=== PATIENT | female | born 1960 | race Caucasian/White ===

== ENCOUNTER 2023-03-19 03:28 | Observation (INO) | payer OTHER ==
[2023-03-19] MEDS ORDERED: SODIUM CHLORIDE 0.9% 1,000 ML IV STA ×3 (03:45→07:27)
[2023-03-19 05:10] LABS: ALT 30 U/L (4-34); AST 48 U/L (14-36); African American GFR (CKD) >90 (>60 ml/min/1.73 sqM); Albumin 3.2 g/dL (3.5-5.0); Alkaline Phosphatase 114 U/L (38-126); Amylase 32 U/L (30-110); Anion Gap 7 mmol/L; Blood Urea Nitrogen 7 mg/dL (7-17); Calcium 8.3 mg/dL (8.4-10.2); Carbon Dioxide 24 mmol/L (22-30); Chloride 103 mmol/L (98-107); Glucose 123 mg/dL (74-99); Lipase 25 U/L (23-300); Magnesium 2.2 mg/dL (1.6-2.3); Non-African American GFR(CKD) >90 (>60 ml/min/1.73 sqM); Phosphorus 2.7 mg/dL (2.5-4.5); Sodium 134 mmol/L (137-145); Total Bilirubin 0.9 mg/dL (0.2-1.3); Total Protein 6.3 g/dL (6.3-8.2)
[2023-03-19 05:13] LABS: Potassium 3.7 mmol/L (3.5-5.1)
[2023-03-19 06:18] LABS: Basophils # (A) 0.1 k/uL (0-0.2); Basophils % (A) 0 %; Eosinophils # (A) 0.4 k/uL (0-0.7); Eosinophils % (A) 3 %; HCT 37.3 % (34.0-46.0); Lymphocytes # (A) 2.3 k/uL (1.0-4.8); Lymphocytes % (A) 17 %; MCH 36.1 pg (25.0-35.0); MCHC 34.7 g/dL (31.0-37.0); MCV 103.8 fL (80.0-100.0); Macrocytosis Slight; Mean Platelet Volume 9.2; Monocytes # (A) 0.7 k/uL (0-1.0); Monocytes % (A) 5 %; Neutrophils # (A) 10.1 k/uL (1.3-7.7); Neutrophils % (A) 73 %; Platelet Count 183 k/uL (150-450); RDW 13.2 % (11.5-15.5); WBC 13.7 k/uL (3.8-10.6)
--- NOTE | 2023-03-19 06:26 | ED ---
Abdominal Pain HPI - General Chief Complaint: Abdominal Pain Stated Complaint: Bowel Obstruction Time Seen by Provider: 03/19/23 03:40 Source: patient, EMS, RN notes reviewed, old records reviewed Mode of arrival: EMS - History of Present Illness Initial Comments: This is a 62-year-old female to the ER today. Patient states she's having significant abdominal pain generalized and diffuse abdominal pain with decreased bowel movements. Patient states she can't urinate and can have a bowel movement. No prior surgical history no history of similar complaint. She states she hasn't had a bowel movement in over 2 weeks MD Complaint: abdominal pain -: week(s) Location: diffuse Radiation: none Severity: moderate Severity scale (1-10): 4 Quality: fullness Consistency: constant Improves With: nothing, bowel movement Worsens With: nothing Associated Symptoms: nausea, constipation Treatments Prior to Arrival: other (0) - Related Data Home Medications Medication Instructions Recorded Confirmed Cyclobenzaprine [Flexeril] 10 mg PO TID PRN 03/19/23 03/19/23 Naproxen [Naprosyn] 500 mg PO BID PRN 03/19/23 03/19/23 Omeprazole [PriLOSEC] 40 mg PO DAILY 03/19/23 03/19/23 Rosuvastatin Calcium 20 mg PO HS 03/19/23 03/19/23 oxyCODONE-APAP 5-325MG [Percocet 1 tab PO TID PRN 03/19/23 03/19/23 5-325 mg] traZODone HCL 150 mg PO HS 03/19/23 03/19/23 Previous Rx's Medication Instructions Recorded Lactulose [Cephulac] 30 gm PO BID PRN #360 ml 03/21/23 polyethylene glycoL 3350 [Miralax] 17 gm PO DAILY 30 Days #527 gm 03/21/23 Allergies Allergy/AdvReac Type Severity Reaction Status Date / Time No Known Allergies Allergy Verified 03/19/23 09:15 Review of Systems ROS Statement: Those systems with pertinent positive or pertinent negative responses have been documented in the HPI. ROS Other: All systems not noted in ROS Statement are negative. Past Medical History Past Medical History: GERD/Reflux, Hypertension History of Any Multi-Drug Resistant Organisms: None Reported Past Surgical History: Section, Cholecystectomy Past Psychological History: Anxiety, Bipolar, Depression, Panic Disorder Past Alcohol Use History: Abuse, Daily, Heavy Past Drug Use History: None Reported - Past Family History Father Family Medical History: Cancer Additional Family Medical History / Comment(s): Father at age 70 from colon cancer. Mother Family Medical History: No Reported History Additional Family Medical History / Comment(s): Mother at age 48 from broken heart and alcoholism. Sister(s) Additional Family Medical History / Comment(s): Anh Chin has 2 sisters and both have problems with alcohol abuse. Patient does not have any brothers. Son(s) Additional Family Medical History / Comment(s): Patient has 2 sons one is 23 years old and has history of depression and 30-year-old son with history of alcohol abuse and marijuana use. General Exam General appearance: alert, in no apparent distress Head exam: Present: atraumatic, normocephalic, normal inspection Eye exam: Present: normal appearance, PERRL, EOMI. Absent: scleral icterus, conjunctival injection, periorbital swelling ENT exam: Present: normal exam, mucous membranes moist Neck exam: Present: normal inspection. Absent: tenderness, meningismus, lymphadenopathy Respiratory exam: Present: normal lung sounds bilaterally. Absent: respiratory distress, wheezes, rales, rhonchi, stridor Cardiovascular Exam: Present: regular rate, normal rhythm, normal heart sounds. Absent: systolic murmur, diastolic murmur, rubs, gallop, clicks GI/Abdominal exam: Present: soft, tenderness, normal bowel sounds. Absent: distended, guarding, rebound, rigid Extremities exam: Present: normal inspection, full ROM, normal capillary refill. Absent: tenderness, pedal edema, joint swelling, calf tenderness Back exam: Present: normal inspection Neurological exam: Present: alert, oriented X3, CN II-XII intact Psychiatric exam: Present: normal affect, normal mood Skin exam: Present: warm, dry, intact, normal color. Absent: rash Course Vital Signs 03/19/23 03/19/23 03/19/23 03:32 07:00 11:11 Temperature 98.4 F 98 F 98.9 F Pulse Rate 98 90 94 Respiratory 18 16 18 Rate Blood Pressure 131/87 148/90 133/79 O2 Sat by Pulse 98 99 96 Oximetry 03/19/23 03/19/23 03/19/23 12:07 15:00 18:21 Temperature 98.2 F Pulse Rate 85 88 80 Respiratory 18 18 18 Rate Blood Pressure 129/76 117/77 126/64 O2 Sat by Pulse 96 97 99 Oximetry - Reevaluation(s) Reevaluation #1: 03/19/23 06:24 Medical records reviewed Reevaluation #2: 03/19/23 07:29 Patient has no improvement in symptoms here in the ER Reevaluation #3: 03/19/23 07:29 Patient informed of results and questions answered Reevaluation #4: 03/19/23 06:25 Was pt. sent in by a medical professional or institution (, DOM, OPHTHALMOLOGY TECHNICIAN, urgent care, hospital, or intermediate...) When possible be specific @ -no Did you speak to anyone other than the patient for history (EMS, parent, family, police, friend...)? What history was obtained from this source @ -no Did you review nursing and triage notes (agree or disagree)? Why? @ -agree Are old charts reviewed (outside hosp., previous admission, EMS record, old EKG, old radiological studies, urgent care reports/EKG's, intermediate records)? Report findings @ -yes Differential Diagnosis (chest pain, altered mental status, abdominal pain women, abdominal pain men, vaginal bleeding, weakness, fever, dyspnea, syncope, headache, dizziness, GI bleed, back pain, seizure, CVA, palpatations, mental health, musculoskeletal)? @ -prior EKG interpreted by me (3pts min.). @ -no X-rays interpreted by me (1pt min.). @ -no CT interpreted by me (1pt min.). @ -yes U/S interpreted by me (1pt. min.). @ -no What testing was considered but not performed or refused? (CT, X-rays, U/S, labs)? Why? @ -none What meds were considered but not given or refused? Why? @ -none Did you discuss the management of the patient with other professionals (professionals i.e. DOM Peres, OPHTHALMOLOGY TECHNICIAN, lab, RT, psych nurse, director social, airset molder, teacher, chief analytics officer, case checker)? Give summary @ -no Was smoking cessation discussed for >3mins.? @ -no Was critical care preformed (if so, how long)? @ -no Were there social determinants of health that impacted care today? How? (Homelessness, low income, unemployed, alcoholism, drug addiction, transportation, low edu. Level, literacy, decrease access to med. care, detention, rehab)? @ -none Was there de-escalation of care discussed even if they declined (Discuss DNR or withdrawal of care, Hospice)? DNR status @ -no What co-morbidities impacted this encounter? (DM, HTN, Smoking, COPD, CAD, Cancer, CVA, ARF, Chemo, Hep., AIDS, mental health diagnosis, sleep apnea, morbid obesity)? @ -none Was patient admitted / discharged? Hospital course, mention meds given and route, prescriptions, significant lab abnormalities, going to OR and other pertinent info. @ - 62 female to the emergency department for evaluation of significant abdominal pain with constipation does have significant amount of rectal stool, will be given antibiotics and admitted for bowel regimen patient states she re cently started on pain control and multiple medications that she takes for pain which have left her with constipation as a side effect Admitted Undiagnosed new problem with uncertain prognosis? @ -no Drug Therapy requiring intensive monitoring for toxicity (Heparin, Nitro, Insulin, Cardizem)? @ -no Were any procedures done? @ -no Diagnosis/symptom? @ -Colonic stool no fecal rectal impaction Acute, or Chronic, or Acute on Chronic? @ -Acute Uncomplicated (without systemic symptoms) or Complicated (systemic symptoms)? @ -Complicated Side effects of treatment? @ -no Exacerbation, Progression, or Severe Exacerbation? @ -exacerbation Poses a threat to life or bodily function? How? (Chest pain, [place], [place], pneumonia, PE, COPD, DKA, ARF, appy, cholecystitis, CVA, Diverticulitis, Homicidal, Rodriguez icidal, threat to staff... and all critical care pts) @ -no Reevaluation #5: 03/19/23 06:25 Differential Abdominal Pain Men: Appendicitis, cholecystitis, diverticulosis, ischemic bowel, pancreatitis, hepatitis, UTI, gastroenteritis, AAA, incarcerated hernia, bowel obstruction, constipation, inflammatory bowel, hepatitis, peptic ulcer disease, splenic infarction, perforated viscus, testicular torsion, this is not meant to be an all-inclusive list - Consultations Consultation #1: Spoke with ELISABETH to agrees to admit the patient Medical Decision Making - Medical Decision Making 62 female to the emergency department for evaluation of significant abdominal pain with constipation does have significant amount of rectal stool, will be given antibiotics and admitted for bowel regimen patient states she recently started on pain control and multiple medications that she takes for pain which have left her with constipation as a side effect - Lab Data Result diagrams: 03/20/23 05:27 03/21/23 05:27 Lab Results 03/19/23 03/19/23 Range/Units 04:27 06:00 WBC 13.7 H (3.8-10.6) k/uL RBC 3.60 L (3.80-5.40) m/uL Hgb 13.0 (11.4-16.0) gm/dL Hct 37.3 (34.0-46.0) % MCV 103.8 H (80.0-100.0) fL MCH 36.1 H (25.0-35.0) pg MCHC 34.7 (31.0-37.0) g/dL RDW 13.2 (11.5-15.5) % Plt Count 183 (150-450) k/uL MPV 9.2 Neutrophils % 73 % Lymphocytes % 17 % Monocytes % 5 % Eosinophils % 3 % Basophils % 0 % Neutrophils # 10.1 H (1.3-7.7) k/uL Lymphocytes # 2.3 (1.0-4.8) k/uL Monocytes # 0.7 (0-1.0) k/uL Eosinophils # 0.4 (0-0.7) k/uL Basophils # 0.1 (0-0.2) k/uL Macrocytosis Slight Sodium 134 L (137-145) mmol/L Potassium 3.7 (3.5-5.1) mmol/L Chloride 103 (98-107) mmol/L Carbon Dioxide 24 (22-30) mmol/L Anion Gap 7 mmol/L BUN 7 (7-17) mg/dL Creatinine 0.51 L (0.52-1.04) mg/dL Est GFR (CKD-EPI)AfAm >90 (>60 ml/min/1.73 sqM) Est GFR (CKD-EPI)NonAf >90 (>60 ml/min/1.73 sqM) Glucose 123 H (74-99) mg/dL Calcium 8.3 L (8.4-10.2) mg/dL Phosphorus 2.7 (2.5-4.5) mg/dL Magnesium 2.2 (1.6-2.3) mg/dL Total Bilirubin 0.9 (0.2-1.3) mg/dL AST 48 H (14-36) U/L ALT 30 (4-34) U/L Alkaline Phosphatase 114 (38-126) U/L Total Protein 6.3 (6.3-8.2) g/dL Albumin 3.2 L (3.5-5.0) g/dL Amylase 32 (30-110) U/L Lipase 25 (23-300) U/L - Radiology Data Radiology results: report reviewed (CT of the abdomen and pelvis significant amount of rectal stool), image reviewed Disposition Clinical Impression: Abdominal pain, Constipation, Abdominal colic, Fecal impaction in rectum Disposition: ADMITTED IP TO THIS HOSP Condition: Fair Is patient prescribed a controlled substance at d/c from ED?: No Time of Disposition: 06:30
--- NOTE | 2023-03-19 06:50 | CT ---
EXAMINATION TYPE: CT abdomen pelvis wo con DATE OF EXAM: 03/19/2023 COMPARISON: None HISTORY: 62-year-old female abdominal pain CT DLP: 767.2 mGycm. Automated exposure control for dose reduction was used. TECHNIQUE: Contiguous axial scanning of the abdomen and pelvis without IV contrast. Coronal and sagit yvan reconstructions performed. FINDINGS: The heart is upper limits of normal in size without pericardial effusion. Some hazy atelectasis in th e lower lungs. Tiny hiatal hernia. Liver mildly enlarged at 18.4 cm with severe diminished attenuation of the hepatic parenchyma. Cholec ystectomy clips. Adrenal glands, right kidney, spleen, and pancreas within normal limits. A few punctate 2 mm nonobstructive left renal calculi. No dilated small bowel, free fluid, or free air. No mesenteric or retroperitoneal lymphadenopathy. Normal appendix. Some scattered liquid stool throughout the right hip: Probably transient. There is solid stool distending the rectum up to 7.1 cm wide. There is moderate to severe circumferen tial rectal wall thickening with a perirectal fat stranding and presacral edema. Small pelvic phleboliths. Uterus is bulky and anteverted, likely with underlying fibroid change. Pelv ic ultrasound can further evaluate. Ovaries not well delineated due to adjacent nonopacified bowel lo ops. Bones: Advanced spondylotic change mid to lower lumbar spine with degenerative grade 1 retrolisthesis L2-L3 and L3-L4. Degenerated levoconvex curvature of the lumbar spine. IMPRESSION: 1. Solid stool distending the rectum up to 7.1 cm wide. There is moderate to severe circumferential rectal wall thickening with surrounding inflammation. Consider fecal impaction and an ischemic sterco ral colitis versus other nonspecific distal colitis. No abscess or free air. 2. A few punctate nonobstructive left renal calculi. 3. Hepatomegaly at 18.4 cm with severe hepatic steatosis. Correlate with LFTs, lipid profile, and pa tient risk factors. Appropriate clinical management advised.
[2023-03-19] MEDS ORDERED: SENNOSIDES-DOCUSATE SODIUM 1 EACH TAB PO STA (07:27)
[2023-03-19] MEDS ORDERED: ONDANSETRON 4 MG/2 ML VIAL IVP PRN (07:27)
[2023-03-19] MEDS ORDERED: NALOXONE 0.4 MG/ML 1 ML VIAL IV PRN (07:27)
[2023-03-19] MEDS ORDERED: PANTOPRAZOLE 40 MG/10 ML VIAL IV SCH (09:00)
[2023-03-19] MEDS: MORPHINE SULFATE 4 MG/ML SYRINGE IV PRN ×3 (12:18→23:03)
--- NOTE | 2023-03-19 14:18 | P.GSCN ---
History of Present Illness Consult date: 03/19/23 History of present illness: CHIEF COMPLAINT: Abdominal pain HISTORY OF PRESENT ILLNESS: This is a 62-year-old female who presented to the hospital with complaints of abdominal pain. She reports that has been several days since her last bowel movement. She has chronic back pain in which she had just recently started on pain pills and did not realize that they could cause constipation. She reports that she usually has a bowel movement daily. But has not had a stool since March 01 per patient. She reports having some nausea and episodes of vomiting. Computed tomography scan of the abdomen completed that showed solid stool distending the rectum up to 7.1 cm wide. There is moderate to severe circumferential rectal wall thickening with surrounding inflammation. Consider fecal impaction and stercoral colitis. Patient did receive enemas in the ER with small results. Patient surgical history of cholecystectomy and C- section. Does have a history of alcohol abuse. Reports her last alcoholic beverage was a week ago. Surgical service consulted for fecal impaction. PAST MEDICAL HISTORY: See below PAST SURGICAL HISTORY: See below MEDICATIONS: See below ALLERGIES: See below SOCIAL HISTORY: No illicit drug use. REVIEW OF SYSTEMS: CONSTITUTIONAL: Denies fever or chills. HEENT: Denies blurred vision, vision changes, or eye pain. Denies hemoptysis CARDIOVASCULAR: Denies chest pain or pressure. RESPIRATORY: No shortness of breath. GASTROINTESTINAL: See HPI for pertinent findings HEMATOLOGIC: Denies bleeding disorders. GENITOURINARY: Denies any blood in urine or increased urinary frequency. SKIN: Denies pruitis. Denies rash. PHYSICAL EXAM: VITAL SIGNS: Reviewed GENERAL: Well-developed in no acute distress. HEENT: No sclera icterus. Extraocular movements grossly intact. Moist buccal mucosa. Head is atraumatic, normocephalic. No nasal drainage. ABDOMEN: Soft. Nondistended. Diffuse tenderness. Rectal exam: Liquidy stool present in her depends. Hard stool ball noted on rectal exam. Patient had pain during exam. NEUROLOGIC: Alert and oriented. Cranial nerves II through XII grossly intact. LABORATORY DATA: WBC 13.7 HgB 13 platelet 183 Sodium 134 potassium 3.7 creatinine 0.5 IMAGING: Computed tomography scan of the abdomen completed that showed solid stool distending the rectum up to 7.1 cm wide. There is moderate to severe circumferential rectal wall thickening with surrounding inflammation. Consider fecal impaction and stercoral colitis versus other nonspecific distal colitis. No abscess or free air. A few punctate nonobstructive left renal calculi. Hepatomegaly at 18.4 cm with severe hepatic steatosis. ASSESSMENT: 1. Fecal impaction. Computed tomography scan showing solid stool distending the rectum up to 7.1 cm wide. Moderate severe circumferential rectal wall thickening with surrounding inflammation PLAN: -Patient scheduled for flexible sigmoidoscopy for disimpaction today with Dr. Wallace quiroga -Keep patient nothing by mouth -Continue supportive care Physician Parer note has been reviewed by physician. Signing provider agrees with the documented findings, assessment, and plan of care. I have personally seen and examined the patient, reviewed the MINERAL TECHNOLOGIST /PAs history, exam and MDM and agree with the assessment and plan as written. Based on total visit time, I have performed more than 50% of the visit. As above: Patient with firm impacted stool in rectal vault. Patient not allow ing any further rectal exam at bedside. We'll proceed with flexible sigmoidoscopy with disimpaction. Past Medical History Past Medical History: GERD/Reflux, Hypertension History of Any Multi-Drug Resistant Organisms: None Reported Past Surgical History: Section, Cholecystectomy Past Psychological History: Anxiety, Bipolar, Depression, Panic Disorder Past Alcohol Use History: Abuse, Daily, Heavy Past Drug Use History: None Reported - Past Family History Father Family Medical History: Cancer Additional Family Medical History / Comment(s): Father at age 70 from colon cancer. Mother Family Medical History: No Reported History Additional Family Medical History / Comment(s): Mother at age 48 from broken heart and alcoholism. Sister(s) Additional Family Medical History / Comment(s): Anh Lock has 2 sisters and both have problems with alcohol abuse. Patient does not have any brothers. Son(s) Additional Family Medical History / Comment(s): Patient has 2 sons one is 23 years old and has history of depression and 30-year-old son with history of alcohol abuse and marijuana use. Medications and Allergies Home Medications Medication Instructions Recorded Confirmed Type Cyclobenzaprine [Flexeril] 10 mg PO TID PRN 03/19/23 03/19/23 History Naproxen [Naprosyn] 500 mg PO BID PRN 03/19/23 03/19/23 History Omeprazole [PriLOSEC] 40 mg PO DAILY 03/19/23 03/19/23 History Rosuvastatin Calcium 20 mg PO HS 03/19/23 03/19/23 History oxyCODONE-APAP 5-325MG [Percocet 1 tab PO TID PRN 03/19/23 03/19/23 History 5-325 mg] traZODone HCL 150 mg PO HS 03/19/23 03/19/23 History Allergies Allergy/AdvReac Type Severity Reaction Status Date / Time No Known Allergies Allergy Verified 03/19/23 09:15 Surgical - Exam Vital Signs Temp Pulse Resp BP Pulse Ox 98.4 F 98 18 131/87 98 03/19/23 03:32 03/19/23 03:32 03/19/23 03:32 03/19/23 03:32 03/19/23 03:32 Results - Labs 03/19/23 06:00 03/19/23 04:27 Abnormal Lab Results - Last 24 Hours (Table) 03/19/23 03/19/23 Range/Units 04:27 06:00 WBC 13.7 H (3.8-10.6) k/uL RBC 3.60 L (3.80-5.40) m/uL MCV 103.8 H (80.0-100.0) fL MCH 36.1 H (25.0-35.0) pg Neutrophils # 10.1 H (1.3-7.7) k/uL Sodium 134 L (137-145) mmol/L Creatinine 0.51 L (0.52-1.04) mg/dL Glucose 123 H (74-99) mg/dL Calcium 8.3 L (8.4-10.2) mg/dL AST 48 H (14-36) U/L Albumin 3.2 L (3.5-5.0) g/dL Diabetes panel 03/19/23 Range/Units 04:27 Sodium 134 L (137-145) mmol/L Potassium 3.7 (3.5-5.1) mmol/L Chloride 103 (98-107) mmol/L Carbon Dioxide 24 (22-30) mmol/L BUN 7 (7-17) mg/dL Creatinine 0.51 L (0.52-1.04) mg/dL Glucose 123 H (74-99) mg/dL Calcium 8.3 L (8.4-10.2) mg/dL AST 48 H (14-36) U/L ALT 30 (4-34) U/L Alkaline Phosphatase 114 (38-126) U/L Total Protein 6.3 (6.3-8.2) g/dL Albumin 3.2 L (3.5-5.0) g/dL Calcium panel 03/19/23 Range/Units 04:27 Calcium 8.3 L (8.4-10.2) mg/dL Phosphorus 2.7 (2.5-4.5) mg/dL Albumin 3.2 L (3.5-5.0) g/dL Pituitary panel 03/19/23 Range/Units 04:27 Sodium 134 L (137-145) mmol/L Potassium 3.7 (3.5-5.1) mmol/L Chloride 103 (98-107) mmol/L Carbon Dioxide 24 (22-30) mmol/L BUN 7 (7-17) mg/dL Creatinine 0.51 L (0.52-1.04) mg/dL Glucose 123 H (74-99) mg/dL Calcium 8.3 L (8.4-10.2) mg/dL Adrenal panel 03/19/23 Range/Units 04:27 Sodium 134 L (137-145) mmol/L Potassium 3.7 (3.5-5.1) mmol/L Chloride 103 (98-107) mmol/L Carbon Dioxide 24 (22-30) mmol/L BUN 7 (7-17) mg/dL Creatinine 0.51 L (0.52-1.04) mg/dL Glucose 123 H (74-99) mg/dL Calcium 8.3 L (8.4-10.2) mg/dL Total Bilirubin 0.9 (0.2-1.3) mg/dL AST 48 H (14-36) U/L ALT 30 (4-34) U/L Alkaline Phosphatase 114 (38-126) U/L Total Protein 6.3 (6.3-8.2) g/dL Albumin 3.2 L (3.5-5.0) g/dL
[2023-03-19] MEDS: ATORVASTATIN 40 MG TAB PO SCH (20:47)
[2023-03-19] MEDS: traZODone HCL 50 MG TAB PO SCH (20:47)
--- NOTE | 2023-03-20 03:17 | P.HPIM ---
History of Present Illness H&P Date: 03/19/23 This is a 62-year-old female who presented to the emergency department with abdominal pain and constipation. Patient reports she follows with physician library serials assistant Marisela Mckeon in the [facility] with a past medical history of GERD hypertension anxiety, bipolar depression, chronic lower back pain. Patient denies smoking or illicit drug use. Patient does report significant alcohol use and reports is normally a daily drinker of large amounts of wine although reports has not drank at least 1-2 weeks. Patient reporting she has not had a bowel movement in quite some time and has been seeing pain management and the outpatient setting maintained on Percocets and Flexeril with naproxen. Patient was scheduled for epidural injections in the lower back with pain management on 03/20/2023. Patient did have enemas with very minimal relief in the ER and will consult general surgery and appreciate input and recommendations as CT of the abdomen showed solid stool distending the rectum up to 7.1 cm wide. There is moderate to severe circumferential rectal wall thickening with surrounding infl ammation. Consider fecal impaction and stercoral colitis versus other nonspecific distal colitis. No abscess or free air. A few punctate nonobstructive left renal calculi. Hepatomegaly at 18.4 cm with severe hepatic steatosis. Review Of Systems: Constitutional: No fever, no chills, no night sweats. No weight change. No weakness, fatigue or lethargy. No daytime sleepiness. EENT: No headache. No blurred vision or double vision, no loss of vision. No loss of Hearing, no ringing in the ears, no dizziness. No nasal drainage or congestion. No epistaxis. No sore throat. Lungs: No shortness of breath, cough, no sputum production. No wheezing. Cardiovascular: No chest pain, no lower extremity edema. No palpitations. No paroxysmal nocturnal dyspnea. No orthopnea. No lightheadedness or dizziness. No syncopal episodes. Abdominal: Reports abdominal pain. No nausea, vomiting. No diarrhea. Reports constipation. No bloody or tarry stools.. Reports loss of appetite. Genitourinary: No dysuria, increased frequency, urgency. No urinary retention. Musculoskeletal: No myalgias. No muscle weakness, no gait dysfunction, no frequent falls. No back pain. No neck pain. Integumentary: No wounds, no lesions. No rash or pruritus. No unusual bruising. No change in hair or nails. Neurologic: No aphasia. No facial droop. No change in mentation. No head injury. No headache. No paralysis. No paresthesia. Psychiatric: No depression. No anxiety. No mood swings. Endocrine: No abnormal blood sugars. No weight change. No excessive sweating or thirst. No cold intolerance. PHYSICAL EXAMINATION: GENERAL: The patient is alert and oriented x4, Well developed, well nourished. Obese HEENT: Pupils are round and equally reacting to light. EOMI. no scleral icterus. No conjunctival pallor. Normocephalic, atraumatic. No pharyngeal erythema. No thyromegaly. CARDIOVASCULAR: S1 and S2 muffled PULMONARY: diminished breath sounds bilaterally with no wheezing or rhonchi note d. ABDOMEN: soft. tender on exam. obese. non-distended, hypoactive bowel sounds. No palpable organomegaly. MUSCULOSKELETAL: No joint swelling or deformity. EXTREMITIES: No cyanosis, clubbing, or pedal edema. NEUROLOGICAL: Gross neurological examination did not reveal any focal deficits. SKIN: No rashes. Assessment: Fecal impaction with constipation, most likely secondary to medication effect with multiple pain medications History of gastroesophageal reflux disease Hypertension history Chronic back pain History of anxiety/bipolar depression Daily alcohol use, last drink 1-2 weeks ago Obesity with BMI of 31.1 GI prophylaxis DVT prophylaxis Full code Plan: Patient will be continued on gentle IV hydration and pain management as patient reports significant abdominal pain, patient is nothing by mouth Patient had multiple attempts at enemas and bedside manual disimpaction with no success and patient further refusing any further digital exam General surgery consulted and will undergo disimpaction surgically Will follow-up on repeat labs and will resume diet was cleared by surgery Patient is scheduled for epidural injections with pain management on 03/20/2023 and will need to be rescheduled Will await surgical report with possible discharge in the next 24 hours The impression and plan of care has been dictated by Jhoana Vigil, nurse practitioner as directed. Dr. Pricila MD I have performed a history and examination and MDM of this patient, discussed the same with the dictator, and agree with the dictator's assessment and plan as written ,documented as a scribe. Based on total visit time, I have performed more than 50% of the visit. Any additional findings or plans will be noted. Past Medical History Past Medical History: GERD/Reflux, Hypertension History of Any Multi-Drug Resistant Organisms: None Reported Past Surgical History: Section, Cholecystectomy Past Psychological History: Anxiety, Bipolar, Depression, Panic Disorder Past Alcohol Use History: Abuse, Daily, Heavy Past Drug Use History: None Reported - Past Family History Father Family Medical History: Cancer Additional Family Medical History / Comment(s): Father at age 70 from colon cancer. Mother Family Medical History: No Reported History Additional Family Medical History / Comment(s): Mother at age 48 from broken heart and alcoholism. Sister(s) Additional Family Medical History / Comment(s): Anh Lock has 2 sisters and both have problems with alcohol abuse. Patient does not have any brothers. Son(s) Additional Family Medical History / Comment(s): Patient has 2 sons one is 23 years old and has history of depression and 30-year-old son with history of alcohol abuse and marijuana use. Medications and Allergies Home Medications Medication Instructions Recorded Confirmed Type Cyclobenzaprine [Flexeril] 10 mg PO TID PRN 03/19/23 03/19/23 History Naproxen [Naprosyn] 500 mg PO BID PRN 03/19/23 03/19/23 History Omeprazole [PriLOSEC] 40 mg PO DAILY 03/19/23 03/19/23 History Rosuvastatin Calcium 20 mg PO HS 03/19/23 03/19/23 History oxyCODONE-APAP 5-325MG [Percocet 1 tab PO TID PRN 03/19/23 03/19/23 History 5-325 mg] traZODone HCL 150 mg PO HS 03/19/23 03/19/23 History Allergies Allergy/AdvReac Type Severity Reaction Status Date / Time No Known Allergies Allergy Verified 03/19/23 09:15 Physical Exam Vitals: Vital Signs Temp Pulse Resp BP Pulse Ox 03/19/23 07:00 98 F 16 L 16 148/90 99 03/19/23 03:32 98.4 F 98 18 131/87 98 Intake and Output 03/18/23 03/19/23 03/19/23 22:59 06:59 14:59 Other: Voiding Method Toilet Weight 84.822 kg Results CBC & Chem 7: 03/19/23 06:00 03/19/23 04:27 Labs: Abnormal Lab Results - Last 24 Hours (Table) 03/19/23 03/19/23 Range/Units 04:27 06:00 WBC 13.7 H (3.8-10.6) k/uL RBC 3.60 L (3.80-5.40) m/uL MCV 103.8 H (80.0-100.0) fL MCH 36.1 H (25.0-35.0) pg Neutrophils # 10.1 H (1.3-7.7) k/uL Sodium 134 L (137-145) mmol/L Creatinine 0.51 L (0.52-1.04) mg/dL Glucose 123 H (74-99) mg/dL Calcium 8.3 L (8.4-10.2) mg/dL AST 48 H (14-36) U/L Albumin 3.2 L (3.5-5.0) g/dL Assessment and Plan Time with Patient: Greater than 30
[2023-03-20] MEDS: MORPHINE SULFATE 4 MG/ML SYRINGE IV PRN ×3 (04:27→13:33)
[2023-03-20] MEDS: PANTOPRAZOLE 40 MG TABLET PO SCH (08:33)
[2023-03-20 08:46] LABS: HCT 38.6 % (37.2-46.3); HGB 12.3 d/dL (12.0-15.0); MCH 34.1 pg (27.0-32.0); MCHC 31.9 d/dL (32.0-37.0); MCV 106.9 FL (80.0-97.0); Mean Platelet Volume 11.4 FL (9.5-12.2); NRBC Per 100 WBC 0 X 10*3/uL (0.00-0.01); Platelet Count 205 X 10*3/uL (140-440); RBC 3.61 X 10*6/uL (4.10-5.20); WBC 9.14 X 10*3/uL (4.50-10.00)
[2023-03-20 08:51] LABS: Blood Urea Nitrogen 5.9 mg/dL (9.0-27.0); Calcium 8.4 mg/dL (8.7-10.3); Carbon Dioxide 24.8 mmol/L (21.6-31.8); Chloride 105 mmol/L (96-109); Glucose 89 mg/dL (70-110); Potassium 3.4 mmol/L (3.5-5.5); Sodium 141 mmol/L (135-145)
[2023-03-20 09:44] LABS: Basophils # (A) 0.05 X 10*3/uL (0.00-0.10); Basophils % (A) 0.5 %; Eosinophils # (A) 0.44 X 10*3/uL (0.04-0.35); Eosinophils % (A) 4.8 %; Lymphocytes # (A) 1.94 X 10*3/uL (0.90-5.00); Lymphocytes % (A) 21.2 %; Macrocytosis (M) 2+; Monocytes # (A) 0.86 X 10*3/uL (0.20-1.00); Monocytes % (A) 9.4 %; Neutrophils # (A) 5.83 X 10*3/uL (1.80-7.70); Neutrophils % (A) 63.9 %
[2023-03-20] MEDS ORDERED: IV FLUID CONTINUATION 1,000 ML IV ONE ×2 (12:43)
[2023-03-20] MEDS ORDERED: PROPOFOL 10 MG/ML 20 ML VIAL IV ONE (12:47)
[2023-03-20] MEDS ORDERED: LIDOCAINE 2% INJ 20 MG/ML (2 ML VIAL) ONE (12:47)
--- NOTE | 2023-03-20 13:03 | P.PCN ---
Date of Procedure: 03/20/23 Procedure(s) Performed: PREOPERATIVE DIAGNOSIS: Fecal impaction POSTOPERATIVE DIAGNOSIS: Fecal impaction, anal fissure, possible posterior anal fissure PROCEDURE: Flexible sigmoidoscopy with disimpaction ANESTHESIA: MAC SURGEON: Jakob Garcia M.D. SPECIMENS: None ENDOSCOPIC PROCEDURE: The patient was placed on the endoscopy table in the left decubitus position. Digital rectal examination revealed a posterior anal fissure. There was dimpling at the 12:00 location suspicious for healed or active perianal fistula. The fissure present posteriorly was indurated and appeared chronic. The patient had a moderate amount of firm stool within the rectal vault. This was evacuated manually. Approximately 4-5 ounces of stool was evacuated. The colonoscope was inserted in the anus and passed under direct visualization to the mid sigmoid. No neoplastic inflammatory or polypoid lesions were seen. Irrigation took place using saline.
[2023-03-20] MEDS: LACTULOSE 20 GM/30 ML CUP PO SCH ×2 (13:33→20:13)
[2023-03-20] MEDS ORDERED: POTASSIUM CHLORIDE ER 20 MEQ TAB.ER PO STA (16:14)
[2023-03-20] MEDS: traZODone HCL 50 MG TAB PO SCH (20:08)
[2023-03-20] MEDS: ATORVASTATIN 40 MG TAB PO SCH (20:09)
[2023-03-21 02:36] VITALS: RESP 17
--- NOTE | 2023-03-21 05:23 | P.PN ---
Subjective Progress Note Date: 03/20/23 This is a 62-year-old female who presented to the emergency department with abdominal pain and constipation. Patient reports she follows with physician sugar laboratory assistant Marisela Mckeon in the [facility] with a past medical history of GERD hypertension anxiety, bipolar depression, chronic lower back pain. Patient denies smoking or illicit drug use. Patient does report significant alcohol use and reports is normally a daily drinker of large amounts of wine although reports has not drank at least 1-2 weeks. Patient reporting she has not had a bowel movement in quite some time and has been seeing pain management and the outpatient setting maintained on Percocets and Flexeril with naproxen. Patient was scheduled for epidural injections in the lower back with pain management on 03/20/2023. Patient did have enemas with very minimal relief in the ER and will consult general surgery and appreciate input and recommendations as CT of the abdomen showed solid stool distending the rectum up to 7.1 cm wide. There is moderate to severe circumferential rectal wall thickening with surrounding inflammation. Consider fecal impaction and stercoral colitis versus other nonspecific distal colitis. No abscess or free air. A few punctate nonobstructive left renal calculi. Hepatomegaly at 18.4 cm with severe hepatic steatosis. 03/20/2023 Patient is seen and evaluated in follow-up this morning currently nothing by mouth and scheduled to undergo flex sigmoidoscopy for impaction of stool in the rectal vault. Patient continues to report pain and abdominal pain and reports did not sleep very well last night. Will await surgical report and diet will likely be resumed once cleared by surgery. Patient is currently afebrile with no reported chest pain or shortness of breath. Patient denies nausea or vomiting at this time. A.m. labs pending although potassium is showing 3.3 and will replace per protocol. Review of systems: Constitutional: No reports of fatigue, fever, or chills Cardiovascular: No reports of chest pain or palpitations Respiratory: No reports of shortness of breath or cough GI: No reports of nausea, vomiting, or diarrhea, reports continued abdominal pain and rectal pain : No reports of dysuria or retention Neurovascular: No reports of weakness or numbness All medications have been reviewed PHYSICAL EXAMINATION: GENERAL: The patient is alert and oriented x4, Well developed, well nourished. Obese HEENT: Pupils are round and equally reacting to light. EOMI. no scleral icterus. No conjunctival pallor. Normocephalic, atraumatic. No pharyngeal erythema. No thyromegaly. CARDIOVASCULAR: S1 and S2 muffled PULMONARY: diminished breath sounds bilaterally with no wheezing or rhonchi noted. ABDOMEN: soft. tender on exam. obese. non-distended, hypoactive bowel sounds. No palpable organomegaly. MUSCULOSKELETAL: No joint swelling or deformity. EXTREMITIES: No cyanosis, clubbing, or pedal edema. NEUROLOGICAL: Gross neurological examination did not reveal any focal deficits. SKIN: No rashes. Assessment: Fecal impaction with constipation, most likely secondary to medication effect with multiple pain medications History of gastroesophageal reflux disease Hypertension history Chronic back pain History of anxiety/bipolar depression Daily alcohol use, last drink 1-2 weeks ago Obesity with BMI of 31.1 GI prophylaxis DVT prophylaxis Full code Plan: Patient will be continued on gentle IV hydration and pain management as patient reports significant abdominal pain, patient is nothing by mouth Patient had multiple attempts at enemas and bedside manual disimpaction with no success and patient further refusing any further digital exam General surgery following an plan is to undergo disimpaction surgically this afternoon Will follow-up on repeat labs and will resume diet was cleared by surgery Patient is scheduled for epidural injections with pain management on 03/20/2023 and will need to be rescheduled Will await surgical clearance with probable discharge in the next 24 hours The impression and plan of care has been dictated by Jhoana Vigil, nurse practitioner as directed. Dr. Pricila MD I have performed a history and examination and MDM of this patient, discussed the same with the dictator, and agree with the dictator's assessment and plan as written ,documented as a scribe. Based on total visit time, I have performed more than 50% of the visit. Any additional findings or plans will be noted. Objective - Vital Signs Vital signs: Vital Signs Temp 98.6 F 03/20/23 14:15 Pulse 85 03/20/23 14:15 Resp 18 03/20/23 14:15 BP 136/82 03/20/23 14:15 Pulse Ox 99 03/20/23 14:15 FiO2 Intake & Output 03/19/23 03/20/23 03/20/23 18:59 06:59 18:59 Intake Total 0 200 Balance 0 200 Weight 84.822 kg Intake: IV 200 Oral 0 Other: Voiding Method Toilet # Voids 1 # Bowel Movements 1 - Labs CBC & Chem 7: 03/20/23 05:27 03/20/23 05:27 Labs: Abnormal Lab Results - Last 24 Hours (Table) 03/20/23 03/20/23 Range/Units 05:27 05:27 RBC 3.61 L (4.10-5.20) X 10*6/uL MCV 106.9 H (80.0-97.0) FL MCH 34.1 H (27.0-32.0) pg MCHC 31.9 L (32.0-37.0) d/dL Eosinophils # 0.44 H (0.04-0.35) X 10*3/uL Macrocytosis (manual) 2+ A Potassium 3.4 L (3.5-5.5) mmol/L BUN 5.9 L (9.0-27.0) mg/dL Creatinine 0.5 L (0.6-1.5) mg/dL BUN/Creatinine Ratio 11.80 L (12.00-20.00) Ratio Calcium 8.4 L (8.7-10.3) mg/dL
[2023-03-21] MEDS: MORPHINE SULFATE 4 MG/ML SYRINGE IV PRN (06:22)
[2023-03-21] MEDS: PANTOPRAZOLE 40 MG TABLET PO SCH (08:43)
[2023-03-21] MEDS: LACTULOSE 20 GM/30 ML CUP PO SCH ×2 (08:43→08:44)
[2023-03-21 08:57] LABS: BUN/Creat Ratio 7.67 Ratio (12.00-20.00); Blood Urea Nitrogen 4.6 mg/dL (9.0-27.0); Calcium 8.8 mg/dL (8.7-10.3); Carbon Dioxide 25.5 mmol/L (21.6-31.8); Chloride 104 mmol/L (96-109); Glucose 94 mg/dL (70-110); Potassium 3.8 mmol/L (3.5-5.5); Sodium 142 mmol/L (135-145)
[2023-03-21 08:58] VITALS: TEMP 98.6
--- NOTE | 2023-03-21 12:07 | P.PN ---
Subjective Progress Note Date: 03/21/23 CHIEF COMPLAINT: Fecal impaction HISTORY OF PRESENT ILLNESS: Patient is status post flexible sigmoidoscopy with disimpaction for fecal impaction. Patient had evidence of anal fissure. Patient did have more bowel movements after the soapsuds enemas last night. Denies any abdominal pain. She does have some pressure in her lower back. Patient does have chronic back pain. She is tolerating regular diet. Denies any nausea vomiting. Afebrile. She would like to be discharged. PHYSICAL EXAM: VITAL SIGNS: Reviewed. GENERAL: Well-developed in no acute distress. ABDOMEN: Soft. Nondistended. Nontender. NEUROLOGIC: Alert and oriented. Cranial nerves II through XII grossly intact. ASSESSMENT: 1. Fecal impaction status post disimpaction 2. Anal fissure PLAN: -Patient can be discharged from surgical standpoint -Continue a good bowel regimen at home Physician Grade Checker note has been reviewed by physician. Signing provider agrees with the documented findings, assessment, and plan of care. Objective - Vital Signs Vital signs: Vital Signs Temp 98.6 F 03/21/23 07:36 Pulse 66 03/21/23 08:40 Resp 17 03/21/23 08:40 BP 128/72 03/21/23 07:36 Pulse Ox 97 03/21/23 07:36 FiO2 Intake & Output 03/20/23 03/21/23 03/21/23 18:59 06:59 18:59 Intake Total 200 Balance 200 Intake: IV 200 Other: Voiding Method Toilet Toilet Toilet # Voids 1 # Bowel Movements 4 - Labs CBC & Chem 7: 03/20/23 05:27 03/21/23 05:27 Labs: Abnormal Lab Results - Last 24 Hours (Table) 03/21/23 Range/Units 05:27 Anion Gap 12.50 H (4.00-12.00) mmol/L BUN 4.6 L (9.0-27.0) mg/dL BUN/Creatinine Ratio 7.67 L (12.00-20.00) Ratio
[2023-03-21 14:52] VITALS: BP 148/83; PULSE 83
--- NOTE | 2023-03-25 06:35 | P.DS ---
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 Patient will follow-up with Marisela FERNANDES in the outpatient setting upon discharge. Patient is to continue with bowel regimen and outpatient follow-up with general surgery as scheduled. Patient to follow-up with pain management and reschedule epidural injections as previously scheduled. Total time taken is greater than 35 minutes. Hospital course This is a 62-year-old female who was recently admitted with severe abdominal pain fecal impaction being closely monitored. Patient was attempted disimpaction and enemas bedside in the ER was unsuccessful and surgery evaluated the patient then underwent flexible sigmoidoscopy with disimpaction. There was noted fissure which appears chronic in the anus and surgery recommended outpatient follow-up. Patient was initially scheduled for epidural pain injections with pain management and has been on a number recommend limiting this and continuing with bowel regimen. Patient has been cleared by consultations. Please refer to consultation note for further HPI. Patient is having bowel movements and would like to go home. Currently no reports of chest pain, shortness of breath, or palpitations. Patient is afebrile. No reports of nausea or vomiting and patient is tolerating diet. Patient will be discharged home today. Physical exam: Gen: This is a 62-year-old female who is awake, alert and oriented 3, well- developed, well-nourished, obese HEENT: Head is atraumatic, normocephalic. Pupils equal, round. Sclerae is anicteric. NECK: Supple. No JVD. No lymphadenopathy. No thyromegaly. LUNGS: Clear to auscultation. No wheezes or rhonchi. No intercostal retractions. HEART: Regular rate and rhythm. No murmur. ABDOMEN: Soft. Bowel sounds are present. No masses. No tenderness. EXTREMITIES: No pedal edema. No calf tenderness. NEUROLOGICAL: Patient is awake, alert and oriented x3. Cranial nerves 2 through 12 are grossly intact. Please refer to medication reconciliation sheet for a list of medications. The impression and plan of care has been dictated by Jhoana Vigil, Nurse Practitioner as directed. Dr. Pricila MD I have performed a history and examination and MDM of this patient, discussed the same with the dictator, and agree with the dictator's assessment and plan as written ,documented as a scribe. Based on total visit time, I have performed more than 50% of the visit. Patient Condition at Discharge: Fair Plan - Discharge Summary Discharge Rx Participant: No New Discharge Prescriptions: New Lactulose [Cephulac] 30 gm PO BID PRN #360 ml PRN Reason: Constipation polyethylene glycoL 3350 [Miralax] 17 gm PO DAILY 30 Days #527 gm Continue oxyCODONE-APAP 5-325MG [Percocet 5-325 mg] 1 tab PO TID PRN PRN Reason: Pain Cyclobenzaprine [Flexeril] 10 mg PO TID PRN PRN Reason: Muscle Spasm Omeprazole [PriLOSEC] 40 mg PO DAILY Naproxen [Naprosyn] 500 mg PO BID PRN PRN Reason: Pain traZODone HCL 150 mg PO HS Rosuvastatin Calcium 20 mg PO HS Discharge Medication List Cyclobenzaprine [Flexeril] 10 mg PO TID PRN 03/19/23 [History] Naproxen [Naprosyn] 500 mg PO BID PRN 03/19/23 [History] Omeprazole [PriLOSEC] 40 mg PO DAILY 03/19/23 [History] Rosuvastatin Calcium 20 mg PO HS 03/19/23 [History] oxyCODONE-APAP 5-325MG [Percocet 5-325 mg] 1 tab PO TID PRN 03/19/23 [History] traZODone HCL 150 mg PO HS 03/19/23 [History] Lactulose [Cephulac] 30 gm PO BID PRN #360 ml 03/21/23 [Rx] polyethylene glycoL 3350 [Miralax] 17 gm PO DAILY 30 Days #527 gm 03/21/23 [Rx] Follow up Appointment(s)/Referral(s): Jakob Garcia MD [Medical Doctor] - 04/03/23 1:20 pm Marisela Mckeon PAC [Primary Care Provider] - 03/29/23 4:00 pm Patient Instructions/Handouts: Depression (DC) Activity/Diet/Wound Care/Special Instructions: activity Limited until follow-up Follow-up primary care provider on discharge Follow-up with pain management Follow-up with surgery outpatient Continue with lactulose 1-2 times daily along with MiraLAX and discuss with pain management as well Activity limited until seen by DR. RICARDO TOLERATED Discharge Disposition: HOME SELF-CARE
== END 2023-03-21 15:06 | disposition home or self-care (01) ==
LOC: EC 03:28 → 6NMEDSUR 07:28 → 5NMEDONC 19:25
PROVIDERS: ADMIT Hospitalist; ATTEND Hospitalist
DX: K56.41 Fecal impaction (principal); K60.2 Anal fissure, unspecified; K21.9 Gastro-esophageal reflux disease without esophagitis; I10 Essential (primary) hypertension; G89.29 Other chronic pain; M54.9 Dorsalgia, unspecified; F41.0 Panic disorder [episodic paroxysmal anxiety]; F31.9 Bipolar disorder, unspecified; F10.11 Alcohol abuse, in remission; E66.9 Obesity, unspecified; Z68.31 Body mass index [BMI] 31.0-31.9, adult; N20.0 Calculus of kidney; R16.0 Hepatomegaly, not elsewhere classified; K76.0 Fatty (change of) liver, not elsewhere classified; Z98.891 History of uterine scar from previous surgery; Z90.49 Acquired absence of other specified parts of digestive tract; Z80.0 Family history of malignant neoplasm of digestive organs; Z81.1 Family history of alcohol abuse and dependence; Z79.899 Other long term (current) drug therapy
CPT/HCPCS: 96376 ×3; 96361; 96374; 96375; 99285; 80053; 80048 ×2; 82150; 83690; 83735; 84100; 85025 ×2; 74176; 45330; G0378 ×4; J2270 ×3; J2704; C9113; J2001

== ENCOUNTER → 2025-02-02 | Outpatient (CLI) | payer OTHER ==
--- NOTE | 2025-02-02 10:21 | US ---
EXAMINATION TYPE: US liver DATE OF EXAM: 02/02/2025 COMPARISON: CT 2022 CLINICAL INDICATION: Female, 64 years old with history of D75.89 OTHER SPECIFIED DISEASES OF BLOOD AN D BLOOD; Hx cholecystectomy. TECHNIQUE: Grayscale and color Doppler imaging of the right upper quadrant. FINDINGS: EXAM MEASUREMENTS: Liver Length: 15.5 cm Gallbladder Wall: Surgically absent CBD: Obscured Right Kidney: 9.4 x 4.8 x 5.0 cm ASSISTANT NEWS DIRECTOR NOTES: *Exam is limited due to gas. Pancreas: *Appears hyperechoic. Limited. Tail was obscured. Liver: Very coarse/heterogeneous with increased echogenicity and attenuation. Gallbladder: Surgically absent Evidence for sonographic Tineo's sign: No CBD: Obscured Right Kidney: No hydronephrosis or masses seen IMPRESSION: 1. No evidence for acute process 2. Heterogenous liver with hepatic steatosis. [facility], , 02/02/2025 10:19 AM
== END | disposition home or self-care (01) ==
LOC: RADUSWWP 09:10
PROVIDERS: ATTEND Internal Medicine
DX: D75.89 Other specified diseases of blood and blood-forming organs (principal); K76.0 Fatty (change of) liver, not elsewhere classified; K76.89 Other specified diseases of liver; Z90.49 Acquired absence of other specified parts of digestive tract
CPT/HCPCS: 76705